=== PATIENT | male | born 1975 | race Caucasian/White ===

== ENCOUNTER 2021-09-08 15:36 | Inpatient (IN) | payer OTHER ==
[~2021-09-08] VITALS: Ht 162.6 cm; Wt 119.0 kg
[2021-09-08] MEDS ORDERED: papaverine 30 mg/ml 2ml inj. ONE (16:00)
--- NOTE | 2021-09-08 18:32 | NUR ---
Problems reprioritized. Patient report given, questions answered & plan of care reviewed with Priscilla SALGADO.
[2021-09-08 19:15] VITALS: BP 126/80
--- NOTE | 2021-09-08 19:30 | NUR ---
Received pt via stretcher and transferred to bed. pt is AAOX4 ,ambulatory, heparin drip placed on the pump and restarted at 1000 units/hr. Pt placed on tele box #11. Pt denied any discomfort. Call light , bedside table within reach. fall precaution in progress.
[2021-09-08] MEDS ORDERED: ASPI-1265 PO (21:04)
[2021-09-08] MEDS ORDERED: EPLE25TA4 PO (21:04)
[2021-09-08] MEDS ORDERED: LOSA25TA96 PO (21:04)
[2021-09-08] MEDS ORDERED: EZET10TA6 PO (21:04)
[2021-09-08] MEDS ORDERED: ATOR40TA PO (21:04)
[2021-09-08] MEDS ORDERED: CARV-50 PO (21:04)
[2021-09-08] MEDS ORDERED: MULT-1085 PO (21:04)
[2021-09-08 22:00] VITALS: BP 124/87
[2021-09-08 22:08] LABS: PARTIAL THROMBOPLASTIN TIME 38 SECONDS (22-32)
[2021-09-08] MEDS ORDERED: HYDROmorphone inj. 0.5 MG/0.5 ML DISP.SYRIN IV PRN (22:30)
[2021-09-08] MEDS ORDERED: HYDROcodone/acetaminophen 10/325mg tab PO PRN (22:30)
[2021-09-08] MEDS ORDERED: HYDROcodone/acetaminophen 5mg/325mg tablet PO PRN (22:30)
[2021-09-08] MEDS ORDERED: acetaminophen 650mg rectal suppository RC PRN (22:30)
[2021-09-08] MEDS ORDERED: normal saline 1000ml 1,000 ML IV SCH (22:30)
[2021-09-08] MEDS ORDERED: bisacodyl 10mg suppository rectal RC PRN (22:30)
[2021-09-08] MEDS ORDERED: diphenhydrAMINE 25mg capsule PO PRN (22:30)
[2021-09-08] MEDS ORDERED: diphenhydrAMINE 50 mg/ml inj IV PRN (22:30)
[2021-09-08] MEDS ORDERED: acetaminophen 325mg tablet PO PRN ×2 (22:30)
[2021-09-08] MEDS ORDERED: mag hydrox/Alum hydrox/simeth 30ml oral suspension PO PRN (22:30)
[2021-09-08] MEDS ORDERED: CefTRIAXone 500MG IM Kit w/LIDOcaine IM ONE (22:30)
[2021-09-08] MEDS ORDERED: ondansetron 4mg rapidly disintigrating tab PO PRN (22:30)
[2021-09-08] MEDS ORDERED: morphine 2 MG/ML inj. syringe IV PRN ×2 (22:30)
[2021-09-08] MEDS ORDERED: ondansetron/PF 4mg/2ml inj IV PRN (22:30)
[2021-09-08] MEDS ORDERED: magnesium hydroxide 30ml (MOM) UD suspension PO PRN (22:30)
[2021-09-08 23:00] LABS: MAGNESIUM 2.2 MG/DL (1.5-2.4)
[2021-09-08 23:06] LABS: HEMOGLOBIN A1C 5.8 % (4.5-6.2)
[2021-09-09 00:29] LABS: CREATINE KINASE 256 U/L (39-308); LIPASE 103 U/L (73-393)
[2021-09-09] MEDS ORDERED: CefTRIAXone 250MG IM Kit w/LIDOcaine IM ONE (00:45)
[2021-09-09] MEDS ORDERED: heparin 10,000 units/1 ML INJ IV PRN (00:50)
[2021-09-09 02:00] VITALS: BP 100/72
[2021-09-09] MEDS: heparin 25,000 UNIT/250ml bag 250 ML IV SCH (05:34)
--- NOTE | 2021-09-09 05:55 | NUR ---
Heparin drips at 1200 units , infusing well with no complaints. Pt had a good night sleep and reported no discomfort..
[2021-09-09 06:00] VITALS: BP 121/83
[2021-09-09 06:43] LABS: BASOPHILS % (AUTO) 0.6 % (0-1); EOSINOPHILS # (AUTO) 0.3 X10'3 (0-0.9); EOSINOPHILS % (AUTO) 3.8 % (0-6); HEMATOCRIT 42.8 % (42.0-52.0); LYMPHOCYTES # (AUTO) 1.7 X10'3 (1.1-4.8); LYMPHOCYTES % (AUTO) 20.4 % (21-51); MEAN CORPUSCULAR HEMOGLOBIN 31.5 PG (27.0-31.0); MEAN CORPUSCULAR VOLUME 89.9 FL (78-98); MEAN PLATELET VOLUME 9.3 FL (7.4-10.4); MONOCYTES # (AUTO) 0.7 X10'3 (0-0.9); MONOCYTES % (AUTO) 8.1 % (2-12); NEUTROPHILS # (AUTO) 5.6 X10'3 (1.8-7.7); NEUTROPHILS % (AUTO) 67.1 % (42-75); PLATELET COUNT 198 X10'3 (140-440); RED BLOOD COUNT 4.76 X10'6 (4.70-6.10); RED CELL DISTRIBUTION WIDTH 13.2 % (11.5-14.5); WHITE BLOOD COUNT 8.3 X10'3 (4.5-11.0)
[2021-09-09 06:51] LABS: D-DIMER < 0.19 MG/L FEU (0-0.50)
[2021-09-09 07:49] LABS: ALANINE AMINOTRANSFERASE 46 U/L (12-78); ALBUMIN 3.3 G/DL (3.4-5.0); ANION GAP 12 (8-16); ASPARTATE AMINO TRANSFERASE 55 U/L (10-37); BILIRUBIN,TOTAL 0.6 MG/DL (0.1-1.0); BLOOD UREA NITROGEN 17 MG/DL (7-18); BUN/CREATININE RATIO 14.3 (5.4-32.0); CALCIUM 8.6 MG/DL (8.5-10.1); CHLORIDE 105 MMOL/L (99-107); CHOL/HDL RATIO 5.3 (0.00-4.99); CHOLESTEROL 189 MG/DL (0-200); CREATININE 1.19 MG/DL (0.60-1.10); GLUCOSE 96 MG/DL (70-104); HDL CHOLESTEROL 36 MG/DL (35-60); POTASSIUM 3.9 MMOL/L (3.5-5.1); SODIUM 142 MMOL/L (135-145); TOTAL CARBON DIOXIDE 24.9 MMOL/L (24-32); TOTAL PROTEIN 6.7 G/DL (6.4-8.2); TRIGLYCERIDES 107 MG/DL (20-135); eGFR 65 ML/MIN
[2021-09-09] MEDS ORDERED: atorvastatin 20mg tablet PO SCH (08:00)
[2021-09-09] MEDS: nitroGLYCERIN 0.2mg/hour patch TD SCH (08:00)
[2021-09-09] MEDS ORDERED: losartan 25mg tablet PO SCH (08:00)
[2021-09-09] MEDS ORDERED: carVEDilol 12.5mg tablet PO SCH (08:00)
[2021-09-09 08:08] LABS: ALKALINE PHOSPHATASE 71 IU/L (46-116); LDL CHOLESTEROL 124 MG/DL (50-100)
[2021-09-09 08:46] LABS: PARTIAL THROMBOPLASTIN TIME 69 SECONDS (22-32)
[2021-09-09 09:00] LABS: ALANINE AMINOTRANSFERASE 50 U/L (12-78); ALBUMIN 3.2 G/DL (3.4-5.0); ALBUMIN/GLOBULIN RATIO 0.8 (1.1-1.5); ALKALINE PHOSPHATASE 70 IU/L (46-116); ANION GAP 6 (8-16); ASPARTATE AMINO TRANSFERASE 53 U/L (10-37); BILIRUBIN,TOTAL 0.7 MG/DL (0.1-1.0); BLOOD UREA NITROGEN 17 MG/DL (7-18); BUN/CREATININE RATIO 14.8 (5.4-32.0); CALCIUM 8.6 MG/DL (8.5-10.1); CHLORIDE 105 MMOL/L (99-107); CREATININE 1.15 MG/DL (0.60-1.10); GLUCOSE 103 MG/DL (70-104); POTASSIUM 4.1 MMOL/L (3.5-5.1); SODIUM 139 MMOL/L (135-145); TOTAL CARBON DIOXIDE 28.4 MMOL/L (24-32); eGFR 68 ML/MIN
--- NOTE | 2021-09-09 09:11 | NUR ---
PAGER ID: [phone] MESSAGE: [id number] [facility] IS [phone]. SUSHILA PETERSON
[2021-09-09] MEDS: aspirin 81mg tab.chew PO SCH (09:51)
[2021-09-09] MEDS: DOXYCYCLINE 100MG CAPSULE PO SCH ×2 (09:51→20:32)
[2021-09-09] MEDS: docusate sod 100mg capsule PO SCH ×2 (09:51→20:00)
[2021-09-09] MEDS: pantoprazole 40mg Tablet.DR PO SCH (09:52)
[2021-09-09] MEDS: furosemide 40mg/4ml inj IV SCH ×2 (09:53→20:34)
[2021-09-09] MEDS ORDERED: atorvastatin 20mg tablet PO ONE (10:20)
[2021-09-09 11:00] VITALS: BP 131/77
[2021-09-09 11:05] LABS: CLARITY,URINE CLEAR (Clear); COLOR,URINE YELLOW (Yellow); GLUCOSE, URINE NEGATIVE (Neg); KETONES,URINE NEGATIVE (Neg); LEUKOCYTE ESTERASE ,URINE TRACE (Neg); NITRITES, URINE NEGATIVE (Neg); OCCULT BLOOD,URINE NEGATIVE (Neg); PROTEIN,URINE NEGATIVE (Neg); UA COLLECTION TYPE CLN CATCH MIDSTREAM; UROBILINOGEN,URINE 0.2 E.U/dL (0.2-1.0)
[2021-09-09 11:14] LABS: URINE AMPHETAMINE SCREEN NEGATIVE (Neg); URINE BARBITUATE SCREEN NEGATIVE (Neg); URINE BENZODIAZEPINES SCREEN NEGATIVE (Neg); URINE CANNABINOID SCREEN NEGATIVE (Neg); URINE COCAINE SCREEN NEGATIVE (Neg); URINE METHADONE SCREEN NEGATIVE (Neg); URINE OPIATE SCREEN NEGATIVE (Neg); URINE PHENCYCLIDINE SCREEN NEGATIVE (Neg); WBC,URINE 20-30 /HPF (0-4)
[2021-09-09 11:15] LABS: BACTERIA,URINE FEW /HPF (Neg); MUCUS STRANDS FEW /LPF (Neg); RBC,URINE 0-2 /HPF (0-2); SQUAMOUS EPITHELIAL CELL,UR FEW /LPF (FEW)
--- NOTE | 2021-09-09 11:18 | NUR ---
IV spread sheet not changed to reflect actual Heparin drip rate during the night lab/rate adjustments. The rate was 1200 units/hr at AM shift change, after PTT results received rate was decreased to 1100 per protocol. In the IV spread sheet it reflects I changed the rate from 1000 units/hr to 1100 units/hr. It looks like an increase per electronic record, but it was a decrease in actuality.
--- NOTE | 2021-09-09 11:52 | NUR ---
DM consult: Pt with A1c 5.8% with no PMH DM in EMR, DM education not indicated at this time. Will continue to follow. Addendum: 09/09/21 at [address] Amended: Links added.
--- NOTE | 2021-09-09 11:56 | NUR ---
page critical lab PAGER ID: [phone] MESSAGE: room 3024A Aleksander Granda critical lab High sensitivity troponin [id number]
[2021-09-09] MEDS ORDERED: nitroGLYCERIN-Tridil 50MG/D5W 250 ML IV ONE (13:55)
[2021-09-09] MEDS ORDERED: midazolam 1 mg/ML 2ml injection ONE (13:56)
[2021-09-09] MEDS ORDERED: heparin 1,000unit/ml 10ml vial 10 ML ONE (13:56)
[2021-09-09] MEDS ORDERED: iohexol 350MG/ML 100ml bottle IV ONE (13:56)
[2021-09-09] MEDS ORDERED: verapamil 2.5 mg/ml inj IV ONE (13:56)
[2021-09-09] MEDS ORDERED: fentaNYL/PF 50MCG/1 ML 2ML syringe ONE (13:56)
[2021-09-09] MEDS ORDERED: iohexol 350 MG/ML 50ML vial IV ONE (13:56)
[2021-09-09] MEDS ORDERED: LIDOcaine 1% 30ml preserv. free vial ONE (13:56)
[2021-09-09] MEDS ORDERED: nitroGLYCERIN 0.4mg SUBLingual tab SL ONE ×2 (14:38→16:26)
[2021-09-09] MEDS ORDERED: iohexol 350 MG/1 ML 200ml bottle ONE (15:05)
[2021-09-09 16:00] VITALS: BP 142/87
[2021-09-09 16:06] LABS: ISTAT HGB ART 13.9 g/dl (14.0-18.0); ISTAT Hct ART 41 %PCV (42-52); ISTAT O2 SATURATION ARTERIAL 96 % (95-98); ISTAT SOURCE ART
[2021-09-09] MEDS: normal saline 1000ml 1,000 ML IV SCH (16:25)
[2021-09-09] MEDS ORDERED: magnesium 2GM in 50ml NS 50 ML IV PRN (17:10)
[2021-09-09] MEDS ORDERED: magnesium 4gm in 100ml NS 100 ML IV PRN (17:10)
[2021-09-09] MEDS ORDERED: potassium Cl 20mEq/100mL bag 100 ML IV PRN (17:10)
[2021-09-09] MEDS ORDERED: MESSAGE TO NURSING PO ONE ×5 (17:10→21:00)
[2021-09-09] MEDS ORDERED: potassium Cl 40MEQ/250ML bag 250 ML IV PRN (17:10)
[2021-09-09] MEDS ORDERED: potassium CL 10mEq/100ml bag 100 ML IV PRN (17:10)
[2021-09-09] MEDS ORDERED: potassium Cl 40MEQ/1/2NS 520ml 520 ML IV PRN (17:10)
[2021-09-09 18:00] VITALS: BP 149/92
--- NOTE | 2021-09-09 18:43 | NUR ---
Patient in room PCU 3024. I have received report from NAOMI Shah and had the opportunity to ask questions and assume patient care.
--- NOTE | 2021-09-09 18:44 | NUR ---
Patient in room PCU 3024. I have received report from Alyssa SALGADO and had the opportunity to ask questions and assume patient care.
--- NOTE | 2021-09-09 19:02 | NUR ---
Problems reprioritized. Patient report given, questions answered & plan of care reviewed with Sayra SALGADO.
[2021-09-09] MEDS: lactobacillus rhamnosus 10,000 MMU CELLS/CAPSULE PO SCH (20:34)
[2021-09-09] MEDS ORDERED: insulin glargine (Lantus) pen - multi-dose SQ PRN (21:00)
[2021-09-09] MEDS ORDERED: dextrose 50%-water 50ml dispensing syringe IV PRN (21:00)
[2021-09-09 21:03] LABS: ABG BASE EXCESS -0.7 mmol/L (-2.0-2.0); ABG HCO3 23.2 mmol/L (22.0-26.0); ABG OXYGEN SATURATION 95.7 % (94-97); ABG PCO2 (T) 36.5 mmHg (35.0-48.0); ABG PO2 (T) 79.8 mmHg (75.0-100.0); ALLEN'S TEST Modified; FCOHb 0.3 % (0.0-3.9); FMetHb 0.3 % (0.0-1.5); FO2Hb 95.1 % (94-97); TOTAL HEMOGLOBIN 16.2 G/dl (14.0-18.0)
[2021-09-09 22:00] VITALS: BP 124/89
[2021-09-09] MEDS ORDERED: ringers solution, lacted 1,000 ML IV ONE (23:35)
[2021-09-10] VITALS (18 sets, daily range): BP systolic 98–121; BP diastolic 54–78
[2021-09-10] MEDS ORDERED: epiNEPHrine 1 mg/ml inj ONE ×2 (02:22→11:03)
[2021-09-10] MEDS ORDERED: ceFAZolin 1000mg inj ONE (02:22)
[2021-09-10] MEDS: normal saline 1000ml 1,000 ML IV SCH ×3 (02:25→22:25)
[2021-09-10 04:03] LABS: BASOPHILS # (AUTO) 0.1 X10'3 (0-0.2); BASOPHILS % (AUTO) 0.7 % (0-1); EOSINOPHILS # (AUTO) 0.3 X10'3 (0-0.9); EOSINOPHILS % (AUTO) 3.6 % (0-6); HEMATOCRIT 43.5 % (42.0-52.0); HEMOGLOBIN 15.1 g/dl (14.0-17.9); LYMPHOCYTES # (AUTO) 1.3 X10'3 (1.1-4.8); MEAN CORPUSCULAR HEMOGLOBIN 31.3 PG (27.0-31.0); MEAN CORPUSCULAR HGB CONC 34.8 g/dL (33.0-36.5); MEAN CORPUSCULAR VOLUME 89.9 FL (78-98); MEAN PLATELET VOLUME 9.8 FL (7.4-10.4); MONOCYTES # (AUTO) 0.7 X10'3 (0-0.9); MONOCYTES % (AUTO) 7.8 % (2-12); NEUTROPHILS # (AUTO) 6.6 X10'3 (1.8-7.7); NEUTROPHILS % (AUTO) 72.9 % (42-75); PLATELET COUNT 222 X10'3 (140-440); RED BLOOD COUNT 4.84 X10'6 (4.70-6.10); RED CELL DISTRIBUTION WIDTH 13.3 % (11.5-14.5)
[2021-09-10 04:22] LABS: ALANINE AMINOTRANSFERASE 57 U/L (12-78); ALBUMIN 3.4 G/DL (3.4-5.0); ALBUMIN/GLOBULIN RATIO 0.8 (1.1-1.5); ALKALINE PHOSPHATASE 72 IU/L (46-116); ANION GAP 12 (8-16); ASPARTATE AMINO TRANSFERASE 37 U/L (10-37); BILIRUBIN,TOTAL 0.6 MG/DL (0.1-1.0); BLOOD UREA NITROGEN 19 MG/DL (7-18); BUN/CREATININE RATIO 16.4 (5.4-32.0); CALCIUM 8.2 MG/DL (8.5-10.1); CHLORIDE 103 MMOL/L (99-107); CHOL/HDL RATIO 5.1 (0.00-4.99); CHOLESTEROL 205 MG/DL (0-200); CREATININE 1.16 MG/DL (0.60-1.10); GLUCOSE 112 MG/DL (70-104); HDL CHOLESTEROL 40 MG/DL (35-60); LDL CHOLESTEROL 141 MG/DL (50-100); POTASSIUM 3.6 MMOL/L (3.5-5.1); SODIUM 141 MMOL/L (135-145); TOTAL CARBON DIOXIDE 25.9 MMOL/L (24-32); TOTAL PROTEIN 7.5 G/DL (6.4-8.2); TRIGLYCERIDES 155 MG/DL (20-135); eGFR 67 ML/MIN
[2021-09-10] MEDS ORDERED: mupirocin 2% nasal ointment 1gm UD NS SCH (05:00)
[2021-09-10] MEDS ORDERED: Insulin Reg/NS 100units/100mL 100 ML IV SCH ×2 (05:00→11:40)
[2021-09-10] MEDS ORDERED: MALTODEXTRIN/FRUCTOSE 0.68 KCAL/ML LIQUID 296ML BOTTLE PO ONE (05:00)
[2021-09-10] MEDS: heparin 25,000 UNIT/250ml bag 250 ML IV SCH (05:06)
[2021-09-10] MEDS ORDERED: gabapentin 400mg capsule PO ONE (05:30)
[2021-09-10] MEDS ORDERED: cefazolin/dext.iso 2gm/50ml 50 ML IV ONE (05:30)
[2021-09-10] MEDS ORDERED: ceFAZolin inj. 3,000 MG in normal saline 100ml IV soln 100 ML IV ONE (05:30)
[2021-09-10] MEDS ORDERED: vancomycin/NS 1 GM ADD-VANTAGE 250 ML X 1 DOSE IV ONE (05:30)
[2021-09-10] MEDS ORDERED: famotidine 20mg tablet PO ONE (06:00)
[2021-09-10] MEDS ORDERED: LORazepam 2 mg/ml vial IV ONE (06:00)
--- NOTE | 2021-09-10 06:31 | NUR ---
Problems reprioritized. Patient report given, questions answered & plan of care reviewed with NAOMI Castañeda and NAOMI Bruce.
--- NOTE | 2021-09-10 06:46 | NUR ---
Patient in room PCU 3024. I have received report from Sayra RN and student, and had the opportunity to ask questions and assume patient care.
[2021-09-10] MEDS ORDERED: SUFENTANIL CITRATE 50 MCG/ML 2ml ampule IV ONE (07:10)
[2021-09-10] MEDS ORDERED: midazolam 1 mg/ML 2ml injection ONE (07:13)
[2021-09-10] MEDS ORDERED: rocuronium 10mg/ml inj IV ONE ×3 (07:14→08:25)
[2021-09-10] MEDS ORDERED: LIDOcaine 2% (20mg/ml) 5ml vial ONE (07:14)
--- NOTE | 2021-09-10 07:31 | NUR ---
Student documentation: I have reviewed and agree with all interventions, assessments performed and documented by Telma Rosas. Student Medication Administration: For this medication-pass time frame, all medication were reviewed, dispensed, administered and documented per hospital policy by Telma Rosas.
[2021-09-10] MEDS: furosemide 40mg/4ml inj IV SCH (07:41)
[2021-09-10] MEDS: losartan 25mg tablet PO SCH (07:44)
[2021-09-10] MEDS: metoprolol tartrate 12.5mg (1/2 tablet) PO SCH ×2 (07:44→20:54)
[2021-09-10] MEDS: atorvastatin 20mg tablet PO SCH (07:45)
[2021-09-10] MEDS: pantoprazole 40mg Tablet.DR PO SCH (07:47)
[2021-09-10] MEDS: lactobacillus rhamnosus 10,000 MMU CELLS/CAPSULE PO SCH ×2 (07:47→20:55)
--- NOTE | 2021-09-10 07:59 | NUR ---
Patient taken to OR for CABG, belongings sent with .
[2021-09-10] MEDS: aspirin 81mg tab.chew PO SCH (08:00)
[2021-09-10] MEDS: sod chloride 0.9% 10ml flush syringe IV SCH ×2 (08:00→20:55)
[2021-09-10] MEDS: docusate sod 100mg capsule PO SCH ×2 (08:00→20:55)
[2021-09-10] MEDS: nitroGLYCERIN 0.2mg/hour patch TD SCH (08:00)
[2021-09-10] MEDS ORDERED: DOPamine/D5W 400mg/250ml bag IV ONE (08:25)
[2021-09-10] MEDS ORDERED: isoflurane 100ml inhalation liquid IH ONE (08:25)
[2021-09-10] MEDS ORDERED: acetaminophen 1000 MG/100ml vial IV ONE (08:25)
[2021-09-10] MEDS ORDERED: nitroGLYCERIN in D5W 50mg/250ml (Tridil) infusion IV ONE (08:25)
[2021-09-10] MEDS ORDERED: aminocaproic acid 250 MG/1 ML inj. ONE ×2 (08:25→10:00)
[2021-09-10] MEDS ORDERED: INSULIN R 100 UNIT in NS 100ML (1 UNIT/1 ML) BAG IV ONE (08:25)
[2021-09-10] MEDS ORDERED: protamine sulf. 10mg/ml inj. IV ONE (08:25)
[2021-09-10] MEDS ORDERED: glycopyrrolate 0.2mg/ml inj ONE (08:25)
[2021-09-10] MEDS ORDERED: albuterol 60 PUFF/8GM Inhaler IH ONE (08:25)
[2021-09-10] MEDS: DOXYCYCLINE 100MG CAPSULE PO SCH (08:30)
[2021-09-10] MEDS ORDERED: heparin 10,000 units/1 ML INJ IR ONE (09:00)
[2021-09-10] MEDS ORDERED: papaverine 30 mg/ml 2ml inj. IA ONE (09:00)
[2021-09-10 09:08] LABS: ABG BASE EXCESS VENOUS 0.7 mmol/L (-2.0 - 2.0); ABG HCO3 VENOUS 23.6 mmol/L (21.0-28.0); ABG PCO2 VENOUS 33.2 mmHg (41.0-54.0); ABG PO2 VENOUS 354.9 mmHg (25.0-35.0); CL (ABG) 102 mmol/L (98-110); FCOHb VENOUS 0.7 %; FHHb VENOUS 0.2 %; FMetHb VENOUS 0.2 % (0.0 - 0.5); FO2Hb VENOUS 98.9 %; GLUCOSE (ABG) 88 mg/dl (70-105); IONIZED CA (ABG) 1.11 mmol/L (1.10-1.43); K (ABG) 3.7 mmol/L (3.5-5.0); TOTAL HEMOGLOBIN 14.7 G/dl (14.0-18.0)
[2021-09-10 09:52] LABS: ABG BASE EXCESS VENOUS 1.6 mmol/L (-2.0 - 2.0); ABG HCO3 VENOUS 25.7 mmol/L (21.0-28.0); ABG PCO2 VENOUS 38.5 mmHg (41.0-54.0); ABG PO2 VENOUS 52.5 mmHg (25.0-35.0); CL (ABG) 97 mmol/L (98-110); FCOHb VENOUS 0.4 %; FHHb VENOUS 12.8 %; FMetHb VENOUS 0.3 % (0.0 - 0.5); FO2Hb VENOUS 86.5 %; GLUCOSE (ABG) 88 mg/dl (70-105); IONIZED CA (ABG) 0.92 mmol/L (1.10-1.43); K (ABG) 3.3 mmol/L (3.5-5.0)
[2021-09-10 09:56] LABS: ABG BASE EXCESS 2.6 mmol/L (-2.0-2.0); ABG HCO3 27.1 mmol/L (22.0-26.0); ABG OXYGEN SATURATION 99.4 % (94-97); ABG PCO2 41.6 mmHg (35.0-48.0); ABG PO2 404.4 mmHg (75.0-100.0); CL (ABG) 98 mmol/L (98-110); FCOHb 0.3 % (0.0-3.9); FMetHb 0.3 % (0.0-1.5); FO2Hb 98.8 % (94-97); GLUCOSE (ABG) 89 mg/dl (70-105); IONIZED CA (ABG) 0.93 mmol/L (1.10-1.43); K (ABG) 3.5 mmol/L (3.5-5.0); TOTAL HEMOGLOBIN 10.8 G/dl (14.0-18.0)
[2021-09-10] MEDS ORDERED: heparin 10,000 units/1 ML INJ ONE (10:00)
[2021-09-10] MEDS ORDERED: methylPREDNISolone sod. succ. 500mg inj ONE (10:00)
[2021-09-10] MEDS ORDERED: albumin (human) 25% 100 ML IV solution IV ONE (10:00)
[2021-09-10] MEDS ORDERED: calcium chloride 100 MG/1 ML inj IV ONE (10:00)
[2021-09-10] MEDS ORDERED: MESSAGE TO NURSING PO ONE (10:00)
[2021-09-10] MEDS ORDERED: sodium bicarbonate (8.4%) 1 mEq/ml syringe ONE (10:00)
[2021-09-10] MEDS ORDERED: phenylephrine 10mg/ml inj. ONE ×2 (10:00→11:03)
[2021-09-10] MEDS ORDERED: ipratropium/albuterol 3ml nebule IH PRN (10:10)
[2021-09-10 10:18] LABS: ABG BASE EXCESS 1.9 mmol/L (-2.0-2.0); ABG HCO3 27.2 mmol/L (22.0-26.0); ABG PCO2 45.4 mmHg (35.0-48.0); ABG PO2 170.1 mmHg (75.0-100.0); CL (ABG) 100 mmol/L (98-110); FCOHb 0.3 % (0.0-3.9); FMetHb 0.3 % (0.0-1.5); FO2Hb 98.4 % (94-97); GLUCOSE (ABG) 93 mg/dl (70-105); IONIZED CA (ABG) 1.02 mmol/L (1.10-1.43); K (ABG) 4.1 mmol/L (3.5-5.0); TOTAL HEMOGLOBIN 11.5 G/dl (14.0-18.0)
[2021-09-10 10:43] LABS: ABG BASE EXCESS 3.8 mmol/L (-2.0-2.0); ABG OXYGEN SATURATION 99.3 % (94-97); ABG PCO2 46.4 mmHg (35.0-48.0); ABG PO2 265.9 mmHg (75.0-100.0); CL (ABG) 99 mmol/L (98-110); FCOHb 0.3 % (0.0-3.9); FMetHb 0.3 % (0.0-1.5); FO2Hb 98.7 % (94-97); GLUCOSE (ABG) 99 mg/dl (70-105); IONIZED CA (ABG) 0.96 mmol/L (1.10-1.43); K (ABG) 3.8 mmol/L (3.5-5.0); TOTAL HEMOGLOBIN 11.2 G/dl (14.0-18.0)
[2021-09-10] MEDS ORDERED: etomidate 2mg/ml inj. ONE (11:03)
[2021-09-10] MEDS ORDERED: acetaminophen 1,000mg/100ml IV 100 ML IV ONE (11:03)
[2021-09-10 11:39] LABS: ABG BASE EXCESS VENOUS -0.2 mmol/L (-2.0 - 2.0); ABG HCO3 VENOUS 25.8 mmol/L (21.0-28.0); ABG PCO2 VENOUS 47.5 mmHg (41.0-54.0); ABG PO2 VENOUS 38.5 mmHg (25.0-35.0); CL (ABG) 101 mmol/L (98-110); FCOHb VENOUS 1.1 %; FHHb VENOUS 30.2 %; FMetHb VENOUS 0.3 % (0.0 - 0.5); FO2Hb VENOUS 68.4 %; GLUCOSE (ABG) 123 mg/dl (70-105); IONIZED CA (ABG) 1.13 mmol/L (1.10-1.43); K (ABG) 4.1 mmol/L (3.5-5.0)
[2021-09-10] MEDS ORDERED: nitroGLYCERIN-Tridil 50MG/D5W 250 ML IV SCH (11:40)
[2021-09-10] MEDS ORDERED: mineral oil 133ml enema RC PRN (11:40)
[2021-09-10] MEDS ORDERED: morphine 4 MG/ML inj SYRINge IV PRN ×2 (11:40)
[2021-09-10] MEDS ORDERED: Neutra Phos packet PO PRN (11:40)
[2021-09-10] MEDS ORDERED: magnesium hydroxide 30ml (MOM) UD suspension PO PRN (11:40)
[2021-09-10] MEDS ORDERED: sodium phosphate inj. 30 MMOL in dextrose 5%-water 250 ML IV PRN (11:40)
[2021-09-10] MEDS ORDERED: acetaminophen 325mg tablet PO PRN ×2 (11:40)
[2021-09-10] MEDS ORDERED: sodium phosphate inj. 15 MMOL in dextrose 5%-water 250 ML IV PRN (11:40)
[2021-09-10] MEDS ORDERED: metoclopramide 5 mg/ml inj IV PRN (11:40)
[2021-09-10] MEDS ORDERED: pantoprazole 40 MG vial IV ONE (11:40)
[2021-09-10] MEDS ORDERED: ondansetron/PF 4mg/2ml inj IV PRN (11:40)
[2021-09-10] MEDS ORDERED: magnesium 2GM in 50ml NS 50 ML IV PRN (11:40)
[2021-09-10] MEDS ORDERED: magnesium citrate 296ml oral solution PO PRN (11:40)
[2021-09-10] MEDS ORDERED: HYDROcodone/acetaminophen 10/325mg tab PO PRN ×2 (11:40)
[2021-09-10] MEDS ORDERED: insulin glargine (Lantus) pen - multi-dose SQ PRN (11:40)
[2021-09-10] MEDS ORDERED: potassium Cl 40MEQ/1/2NS 520ml 520 ML IV PRN (11:40)
[2021-09-10] MEDS ORDERED: potassium Cl 20mEq/100mL bag 100 ML IV PRN (11:40)
[2021-09-10] MEDS ORDERED: niCARDipine-NS 40mg/200ml IVPB 200 ML IV PRN (11:40)
[2021-09-10] MEDS ORDERED: potassium CL 10mEq/100ml bag 100 ML IV PRN (11:40)
[2021-09-10] MEDS ORDERED: magnesium 4gm in 100ml NS 100 ML IV PRN (11:40)
[2021-09-10] MEDS ORDERED: potassium Cl 20 mEq SR tablet PO PRN (11:40)
[2021-09-10] MEDS ORDERED: dextrose 50%-water 50ml dispensing syringe IV PRN (11:40)
[2021-09-10] MEDS ORDERED: sodium chloride 0.45% 1,000 ML IV SCH (11:40)
[2021-09-10] MEDS ORDERED: potassium Cl 40MEQ/250ML bag 250 ML IV PRN (11:40)
[2021-09-10] MEDS ORDERED: NOREPINEPHRINE BITARTRATE/D5W 250 ML IV PRN (11:40)
[2021-09-10] MEDS ORDERED: bisacodyl 10mg suppository rectal RC PRN (11:40)
[2021-09-10 12:14] LABS: ABG BASE EXCESS 3.3 mmol/L (-2.0-2.0); ABG HCO3 27.6 mmol/L (22.0-26.0); ABG OXYGEN SATURATION 96.8 % (94-97); ABG PCO2 (T) 40.1 mmHg (35.0-48.0); ABG PO2 (T) 90.7 mmHg (75.0-100.0); ALLEN'S TEST POSITIVE; FCOHb 0.4 % (0.0-3.9); FLOW 3 L/min; FMetHb 0.3 % (0.0-1.5); FO2Hb 96.1 % (94-97); PATIENT TEMPERATURE 36.6; PEEP 5 cm H2O; RESPIRATORY RATE 12 b/min; TIDAL VOLUME 700 mL; TOTAL HEMOGLOBIN 15.7 G/dl (14.0-18.0)
--- NOTE | 2021-09-10 12:16 | NUR ---
CABG consult: Pt s/p CABG today, would benefit from nutrition therapy education once more appropriate. Addendum: 09/10/21 at [address] Amended: Links added.
[2021-09-10 12:27] LABS: BASOPHILS % (AUTO) 0.4 % (0-1); EOSINOPHILS # (AUTO) 0.1 X10'3 (0-0.9); HEMOGLOBIN 14.7 g/dl (14.0-17.9); LYMPHOCYTES # (AUTO) 0.6 X10'3 (1.1-4.8); LYMPHOCYTES % (AUTO) 4.3 % (21-51); MEAN CORPUSCULAR HEMOGLOBIN 30.9 PG (27.0-31.0); MEAN CORPUSCULAR HGB CONC 34.2 g/dL (33.0-36.5); MEAN CORPUSCULAR VOLUME 90.2 FL (78-98); MEAN PLATELET VOLUME 9.3 FL (7.4-10.4); MONOCYTES # (AUTO) 0.6 X10'3 (0-0.9); MONOCYTES % (AUTO) 4.3 % (2-12); NEUTROPHILS # (AUTO) 12.1 X10'3 (1.8-7.7); PLATELET COUNT 146 X10'3 (140-440); RED BLOOD COUNT 4.77 X10'6 (4.70-6.10); RED CELL DISTRIBUTION WIDTH 13.1 % (11.5-14.5); WHITE BLOOD COUNT 13.4 X10'3 (4.5-11.0)
[2021-09-10 12:30] LABS: PARTIAL THROMBOPLASTIN TIME 28 SECONDS (22-32)
[2021-09-10 12:31] LABS: ALANINE AMINOTRANSFERASE 37 U/L (12-78); ALBUMIN 2.9 G/DL (3.4-5.0); ALBUMIN/GLOBULIN RATIO 1.1 (1.1-1.5); ALKALINE PHOSPHATASE 54 IU/L (46-116); ANION GAP 8 (8-16); BLOOD UREA NITROGEN 17 MG/DL (7-18); BUN/CREATININE RATIO 13.2 (5.4-32.0); CALCIUM 7.8 MG/DL (8.5-10.1); CHLORIDE 106 MMOL/L (99-107); CREATININE 1.29 MG/DL (0.60-1.10); GLUCOSE 135 MG/DL (70-104); MAGNESIUM 1.9 MG/DL (1.5-2.4); SODIUM 142 MMOL/L (135-145); TOTAL CARBON DIOXIDE 27.8 MMOL/L (24-32); TOTAL PROTEIN 5.6 G/DL (6.4-8.2); eGFR 59 ML/MIN
[2021-09-10 12:36] LABS: ASPARTATE AMINO TRANSFERASE 45 U/L (10-37); PHOSPHORUS 2.6 MG/DL (2.3-4.5)
[2021-09-10] MEDS: gabapentin 300mg capsule PO SCH ×2 (12:44→20:55)
[2021-09-10] MEDS ORDERED: NORepinephrine 8mg/ 250ml NS 250 ML IV PRN (12:57)
[2021-09-10] MEDS: albumin (Human) 5% 250ml 250 ML IV PRN ×2 (13:37→15:05)
[2021-09-10] MEDS: ceFAZolin/D5W- 1GM premix 50 ML IV SCH (16:18)
[2021-09-10] MEDS: albuterol 2.5 MG/3 ML nebule NEB PRN (16:33)
[2021-09-10 17:44] LABS: BASOPHILS % (AUTO) 0.1 % (0-1); EOSINOPHILS % (AUTO) 0.1 % (0-6); HEMATOCRIT 39.3 % (42.0-52.0); HEMOGLOBIN 13.5 g/dl (14.0-17.9); LYMPHOCYTES # (AUTO) 0.6 X10'3 (1.1-4.8); LYMPHOCYTES % (AUTO) 3.2 % (21-51); MEAN CORPUSCULAR HGB CONC 34.2 g/dL (33.0-36.5); MEAN CORPUSCULAR VOLUME 90.5 FL (78-98); MEAN PLATELET VOLUME 10.1 FL (7.4-10.4); MONOCYTES # (AUTO) 0.5 X10'3 (0-0.9); MONOCYTES % (AUTO) 2.6 % (2-12); PLATELET COUNT 209 X10'3 (140-440); RED BLOOD COUNT 4.35 X10'6 (4.70-6.10); RED CELL DISTRIBUTION WIDTH 13.5 % (11.5-14.5); WHITE BLOOD COUNT 20.2 X10'3 (4.5-11.0)
[2021-09-10 17:51] LABS: ALBUMIN 3.6 G/DL (3.4-5.0); ANION GAP 11 (8-16); BLOOD UREA NITROGEN 18 MG/DL (7-18); BUN/CREATININE RATIO 13.5 (5.4-32.0); CALCIUM 7.9 MG/DL (8.5-10.1); CHLORIDE 108 MMOL/L (99-107); CREATININE 1.33 MG/DL (0.60-1.10); GLUCOSE 157 MG/DL (70-104); MAGNESIUM 3.2 MG/DL (1.5-2.4); PHOSPHORUS 3.2 MG/DL (2.3-4.5); POTASSIUM 4.2 MMOL/L (3.5-5.1); SODIUM 144 MMOL/L (135-145); TOTAL CARBON DIOXIDE 25.3 MMOL/L (24-32); eGFR 57 ML/MIN
[2021-09-10] MEDS: ipratropium/albuterol 3ml nebule NEB SCH ×2 (20:23→23:00)
[2021-09-10] MEDS: vancomycin/NS 1 GM ADD-VANTAGE 250 ML IV SCH (20:54)
[2021-09-10] MEDS: sennosides/docusate sodium tablet PO SCH (20:55)
[2021-09-10] MEDS: mupirocin 2% nasal ointment 1gm UD NS SCH (20:55)
[2021-09-10] MEDS ORDERED: atorvastatin 10mg tablet PO SCH (21:00)
[2021-09-10 23:51] LABS: MAGNESIUM 2.7 MG/DL (1.5-2.4)
[2021-09-11] VITALS (21 sets, daily range): BP systolic 90–135; BP diastolic 54–82
[2021-09-11 01:22] LABS: PARTIAL THROMBOPLASTIN TIME 27 SECONDS (22-32)
[2021-09-11 01:23] LABS: BASOPHILS # (AUTO) 0.2 X10'3 (0-0.2); BASOPHILS % (AUTO) 1.1 % (0-1); EOSINOPHILS % (AUTO) 0 % (0-6); HEMOGLOBIN 13.2 g/dl (14.0-17.9); LYMPHOCYTES # (AUTO) 0.6 X10'3 (1.1-4.8); LYMPHOCYTES % (AUTO) 3.2 % (21-51); MEAN CORPUSCULAR HEMOGLOBIN 31.1 PG (27.0-31.0); MEAN CORPUSCULAR HGB CONC 34.8 g/dL (33.0-36.5); MEAN CORPUSCULAR VOLUME 89.5 FL (78-98); MEAN PLATELET VOLUME 9.7 FL (7.4-10.4); MONOCYTES # (AUTO) 0.7 X10'3 (0-0.9); MONOCYTES % (AUTO) 3.7 % (2-12); NEUTROPHILS # (AUTO) 17.1 X10'3 (1.8-7.7); PLATELET COUNT 218 X10'3 (140-440); RED BLOOD COUNT 4.25 X10'6 (4.70-6.10); WHITE BLOOD COUNT 18.6 X10'3 (4.5-11.0)
[2021-09-11 01:25] LABS: ALANINE AMINOTRANSFERASE 42 U/L (12-78); ALBUMIN 3.5 G/DL (3.4-5.0); ALBUMIN/GLOBULIN RATIO 1.3 (1.1-1.5); ALKALINE PHOSPHATASE 47 IU/L (46-116); ANION GAP 10 (8-16); ASPARTATE AMINO TRANSFERASE 56 U/L (10-37); BILIRUBIN,TOTAL 0.6 MG/DL (0.1-1.0); BLOOD UREA NITROGEN 19 MG/DL (7-18); BUN/CREATININE RATIO 12.8 (5.4-32.0); CALCIUM 7.9 MG/DL (8.5-10.1); CHLORIDE 109 MMOL/L (99-107); CREATININE 1.49 MG/DL (0.60-1.10); GLUCOSE 108 MG/DL (70-104); MAGNESIUM 2.8 MG/DL (1.5-2.4); PHOSPHORUS 2.5 MG/DL (2.3-4.5); SODIUM 146 MMOL/L (135-145); TOTAL CARBON DIOXIDE 27.5 MMOL/L (24-32); TOTAL PROTEIN 6.2 G/DL (6.4-8.2); eGFR 50 ML/MIN
[2021-09-11] MEDS: ipratropium/albuterol 3ml nebule NEB SCH ×6 (03:54→20:14)
[2021-09-11 06:46] LABS: ISTAT Hct MIX 40 %PCV (42-52); ISTAT O2 SATURATION MIX VENOUS 66 % (60-80); ISTAT SOURCE VEN
[2021-09-11] MEDS: HYDROcodone/acetaminophen 10/325mg tab PO PRN ×4 (06:49→21:32)
[2021-09-11] MEDS: atorvastatin 20mg tablet PO SCH (07:56)
[2021-09-11] MEDS: lactobacillus rhamnosus 10,000 MMU CELLS/CAPSULE PO SCH ×2 (07:57→20:16)
[2021-09-11] MEDS: metoprolol tartrate 12.5mg (1/2 tablet) PO SCH ×2 (07:57→20:16)
[2021-09-11] MEDS: aspirin 325mg tablet, delayed-release (Ecotrin) PO SCH (07:57)
[2021-09-11] MEDS: gabapentin 300mg capsule PO SCH ×3 (07:58→20:16)
[2021-09-11] MEDS: docusate sod 100mg capsule PO SCH ×2 (07:58→20:15)
[2021-09-11] MEDS: sennosides/docusate sodium tablet PO SCH ×2 (07:58→20:15)
[2021-09-11] MEDS: nitroGLYCERIN 0.2mg/hour patch TD SCH (07:58)
[2021-09-11] MEDS: mupirocin 2% nasal ointment 1gm UD NS SCH ×2 (07:59→20:16)
[2021-09-11] MEDS: vancomycin/NS 1 GM ADD-VANTAGE 250 ML IV SCH ×2 (07:59→20:17)
[2021-09-11] MEDS: losartan 25mg tablet PO SCH (08:00)
[2021-09-11] MEDS: sod chloride 0.9% 10ml flush syringe IV SCH ×2 (08:00→20:00)
[2021-09-11] MEDS ORDERED: metoprolol tartrate 12.5mg (1/2 tablet) PO SCH (08:00)
[2021-09-11] MEDS: ceFAZolin/D5W- 1GM premix 50 ML IV SCH ×3 (08:00→16:13)
[2021-09-11] MEDS: normal saline 1000ml 1,000 ML IV SCH ×2 (08:25→16:13)
[2021-09-11 10:08] LABS: ACTIVATED CLOTTING TIME 514 SEC (101-148)
[2021-09-11 10:08] LABS: ACT @ 1.70 U 292 SEC (193-297); ACT @ 2.84 U 402 SEC (260-420); BASELINE ACT 157 SEC (101-148)
[2021-09-11 10:08] LABS: ACTIVATED CLOTTING TIME 554 SEC (101-148)
[2021-09-11 10:08] LABS: ACTIVATED CLOTTING TIME 805 SEC (101-148)
[2021-09-11 10:08] LABS: ACTIVATED CLOTTING TIME 120 SEC (101-148)
[2021-09-11] MEDS ORDERED: dextrose 50%-water 50ml dispensing syringe IV PRN ×4 (10:55)
[2021-09-11] MEDS ORDERED: glucagon, human recombinant 1mg kit SUBCUT PRN ×2 (10:55)
[2021-09-11] MEDS ORDERED: insulin Lispro (HumaLOG) vial - multi-dose SQ SCH (10:55)
[2021-09-11] MEDS ORDERED: MESSAGE TO PHARMACY PO ONE (10:55)
[2021-09-11] MEDS ORDERED: dextrose ORAL solution 15 GM/59 ML bottle PO PRN ×4 (10:55)
[2021-09-11] MEDS: insulin glargine (Lantus) pen - multi-dose SQ SCH ×2 (11:42→21:27)
--- NOTE | 2021-09-11 11:58 | NUR ---
CABG consult: Pt s/p CABG 09/10, Provided pt and family member w/ written and verbal CABG nutrition therapy w/ RD contact info. Pt receptive of info Addendum: 09/11/21 at [address] Amended: Links added.
[2021-09-11] MEDS: insulin Lispro (HumaLOG) vial - multi-dose SQ SCH ×3 (13:16→21:26)
[2021-09-11 13:23] LABS: BASOPHILS % (AUTO) 0.2 % (0-1); EOSINOPHILS % (AUTO) 0 % (0-6); HEMATOCRIT 37.6 % (42.0-52.0); HEMOGLOBIN 12.6 g/dl (14.0-17.9); LYMPHOCYTES # (AUTO) 0.6 X10'3 (1.1-4.8); LYMPHOCYTES % (AUTO) 3.2 % (21-51); MEAN CORPUSCULAR HEMOGLOBIN 30.7 PG (27.0-31.0); MEAN CORPUSCULAR HGB CONC 33.4 g/dL (33.0-36.5); MEAN CORPUSCULAR VOLUME 91.7 FL (78-98); MEAN PLATELET VOLUME 9.8 FL (7.4-10.4); MONOCYTES # (AUTO) 0.6 X10'3 (0-0.9); MONOCYTES % (AUTO) 2.9 % (2-12); NEUTROPHILS # (AUTO) 18.7 X10'3 (1.8-7.7); NEUTROPHILS % (AUTO) 93.7 % (42-75); PLATELET COUNT 164 X10'3 (140-440)
[2021-09-11 13:29] LABS: PARTIAL THROMBOPLASTIN TIME 26 SECONDS (22-32)
[2021-09-11 13:31] LABS: ANION GAP 12 (8-16); BLOOD UREA NITROGEN 25 MG/DL (7-18); BUN/CREATININE RATIO 14.2 (5.4-32.0); CHLORIDE 102 MMOL/L (99-107); CREATININE 1.76 MG/DL (0.60-1.10); GLUCOSE 205 MG/DL (70-104); POTASSIUM 4.2 MMOL/L (3.5-5.1); SODIUM 137 MMOL/L (135-145); TOTAL CARBON DIOXIDE 22.6 MMOL/L (24-32)
[2021-09-11 13:32] LABS: ALANINE AMINOTRANSFERASE 39 U/L (12-78); ALBUMIN 3.5 G/DL (3.4-5.0); ALBUMIN/GLOBULIN RATIO 1.2 (1.1-1.5); ALKALINE PHOSPHATASE 49 IU/L (46-116); ASPARTATE AMINO TRANSFERASE 59 U/L (10-37); BILIRUBIN,TOTAL 0.7 MG/DL (0.1-1.0); CALCIUM 7.4 MG/DL (8.5-10.1); MAGNESIUM 2.4 MG/DL (1.5-2.4); PHOSPHORUS 4.2 MG/DL (2.3-4.5); TOTAL PROTEIN 6.4 G/DL (6.4-8.2); eGFR 42 ML/MIN
[2021-09-11] MEDS ORDERED: insulin glargine (Lantus) pen - multi-dose SQ SCH (21:00)
[2021-09-12] VITALS (18 sets, daily range): BP systolic 80–151; BP diastolic 53–69
[2021-09-12] MEDS: ceFAZolin/D5W- 1GM premix 50 ML IV SCH (00:02)
[2021-09-12] MEDS: ipratropium/albuterol 3ml nebule NEB SCH ×6 (00:06→19:59)
[2021-09-12 03:10] LABS: BASOPHILS % (AUTO) 0.1 % (0-1); EOSINOPHILS % (AUTO) 0 % (0-6); HEMATOCRIT 31.2 % (42.0-52.0); HEMOGLOBIN 10.7 g/dl (14.0-17.9); LYMPHOCYTES # (AUTO) 0.7 X10'3 (1.1-4.8); LYMPHOCYTES % (AUTO) 4.4 % (21-51); MEAN CORPUSCULAR HGB CONC 34.2 g/dL (33.0-36.5); MEAN CORPUSCULAR VOLUME 90.6 FL (78-98); MEAN PLATELET VOLUME 9.6 FL (7.4-10.4); MONOCYTES % (AUTO) 6.3 % (2-12); NEUTROPHILS # (AUTO) 14.2 X10'3 (1.8-7.7); NEUTROPHILS % (AUTO) 89.2 % (42-75); PLATELET COUNT 138 X10'3 (140-440); RED BLOOD COUNT 3.44 X10'6 (4.70-6.10); RED CELL DISTRIBUTION WIDTH 13.2 % (11.5-14.5); WHITE BLOOD COUNT 15.9 X10'3 (4.5-11.0)
[2021-09-12 03:23] LABS: ANION GAP 9 (8-16); BILIRUBIN,TOTAL 0.6 MG/DL (0.1-1.0); BLOOD UREA NITROGEN 29 MG/DL (7-18); BUN/CREATININE RATIO 19.1 (5.4-32.0); CALCIUM 7.3 MG/DL (8.5-10.1); CHLORIDE 104 MMOL/L (99-107); CREATININE 1.52 MG/DL (0.60-1.10); GLUCOSE 139 MG/DL (70-104); MAGNESIUM 2.5 MG/DL (1.5-2.4); PHOSPHORUS 3.7 MG/DL (2.3-4.5); POTASSIUM 4.2 MMOL/L (3.5-5.1); SODIUM 138 MMOL/L (135-145); TOTAL CARBON DIOXIDE 25.4 MMOL/L (24-32); TOTAL PROTEIN 5.6 G/DL (6.4-8.2); eGFR 49 ML/MIN
[2021-09-12 03:24] LABS: ALANINE AMINOTRANSFERASE 31 U/L (12-78); ALBUMIN 2.9 G/DL (3.4-5.0); ALBUMIN/GLOBULIN RATIO 1.1 (1.1-1.5); ALKALINE PHOSPHATASE 41 IU/L (46-116); ASPARTATE AMINO TRANSFERASE 45 U/L (10-37)
[2021-09-12] MEDS: HYDROcodone/acetaminophen 10/325mg tab PO PRN ×3 (04:57→17:41)
--- NOTE | 2021-09-12 06:30 | NUR ---
Patient in room ICU 2039. I have received report and had the opportunity to ask questions and assume patient care.
[2021-09-12] MEDS: sod chloride 0.9% 10ml flush syringe IV SCH ×2 (08:00→20:41)
[2021-09-12] MEDS: mupirocin 2% nasal ointment 1gm UD NS SCH (08:00)
[2021-09-12] MEDS: sennosides/docusate sodium tablet PO SCH ×2 (08:10→20:41)
[2021-09-12] MEDS: gabapentin 300mg capsule PO SCH (08:11)
[2021-09-12] MEDS: losartan 25mg tablet PO SCH (08:11)
[2021-09-12] MEDS: lactobacillus rhamnosus 10,000 MMU CELLS/CAPSULE PO SCH ×2 (08:11→20:41)
[2021-09-12] MEDS: pantoprazole 40mg Tablet.DR PO SCH (08:11)
[2021-09-12] MEDS: atorvastatin 20mg tablet PO SCH (08:11)
[2021-09-12] MEDS: aspirin 325mg tablet, delayed-release (Ecotrin) PO SCH (08:11)
[2021-09-12] MEDS: docusate sod 100mg capsule PO SCH ×2 (08:12→20:41)
[2021-09-12] MEDS: metoprolol tartrate 12.5mg (1/2 tablet) PO SCH ×2 (08:12→20:41)
[2021-09-12] MEDS ORDERED: potassium Cl 20mEq/100mL bag 100 ML IV PRN (08:20)
[2021-09-12] MEDS ORDERED: potassium Cl 20 mEq SR tablet PO PRN (08:20)
[2021-09-12] MEDS ORDERED: potassium CL 10mEq/100ml bag 100 ML IV PRN (08:20)
[2021-09-12] MEDS ORDERED: potassium Cl 40MEQ/1/2NS 520ml 520 ML IV PRN (08:20)
[2021-09-12] MEDS ORDERED: magnesium 2GM in 50ml NS 50 ML IV PRN (08:20)
[2021-09-12] MEDS ORDERED: potassium Cl 40MEQ/250ML bag 250 ML IV PRN (08:20)
[2021-09-12] MEDS ORDERED: magnesium 4gm in 100ml NS 100 ML IV PRN (08:20)
--- NOTE | 2021-09-12 09:48 | NUR ---
Nutrition consult: CABG consult previously addressed Addendum: 09/12/21 at [address] Amended: Links added.
--- NOTE | 2021-09-12 14:27 | NUR ---
Initial: Pt admitted w/ NSTEMI per EMR, underwent CABG 09/10. Pt currently on Regular/NCS diet eating 100% of meals meeting needs. LBM 09/07 receiving routine Colace and Senna. No nutrition intervention implemented at this time, will continue to monitor. Recs: 1. Continue Regular/NCS diet as tolerated 2. Bowel care per rx 3. Weekly wts Addendum: 09/12/21 at [address] Amended: Links added.
--- NOTE | 2021-09-12 16:00 | NUR ---
Pt reported off to NAOMI Angelo
--- NOTE | 2021-09-12 16:21 | NUR ---
Pt transferred monitored on telemetry to room 0881H
[2021-09-12] MEDS: magnesium Cl slow-release 64mg tablet PO SCH (20:41)
[2021-09-12] MEDS: potassium Cl 20 mEq SR tablet PO SCH (20:42)
[2021-09-12] MEDS: temazepam 15mg capsule PO PRN (20:42)
[2021-09-13] VITALS (8 sets, daily range): BP systolic 95–155; BP diastolic 53–76
[2021-09-13 06:50] LABS: ANION GAP 8 (8-16); BLOOD UREA NITROGEN 36 MG/DL (7-18); BUN/CREATININE RATIO 28.8 (5.4-32.0); CHLORIDE 107 MMOL/L (99-107); CREATININE 1.25 MG/DL (0.60-1.10); GLUCOSE 118 MG/DL (70-104); POTASSIUM 4.3 MMOL/L (3.5-5.1); SODIUM 141 MMOL/L (135-145); TOTAL CARBON DIOXIDE 25.8 MMOL/L (24-32)
[2021-09-13 06:51] LABS: ALBUMIN 2.9 G/DL (3.4-5.0); CALCIUM 7.7 MG/DL (8.5-10.1); eGFR 62 ML/MIN
[2021-09-13 07:12] LABS: BASOPHILS % (AUTO) 0.1 % (0-1); EOSINOPHILS # (AUTO) 0.1 X10'3 (0-0.9); EOSINOPHILS % (AUTO) 1.1 % (0-6); HEMATOCRIT 33.2 % (42.0-52.0); HEMOGLOBIN 11.3 g/dl (14.0-17.9); LYMPHOCYTES # (AUTO) 1.1 X10'3 (1.1-4.8); LYMPHOCYTES % (AUTO) 8.1 % (21-51); MEAN CORPUSCULAR HEMOGLOBIN 31.3 PG (27.0-31.0); MEAN CORPUSCULAR HGB CONC 34.1 g/dL (33.0-36.5); MEAN CORPUSCULAR VOLUME 91.9 FL (78-98); MEAN PLATELET VOLUME 9.8 FL (7.4-10.4); MONOCYTES # (AUTO) 1.5 X10'3 (0-0.9); MONOCYTES % (AUTO) 10.8 % (2-12); NEUTROPHILS # (AUTO) 10.8 X10'3 (1.8-7.7); NEUTROPHILS % (AUTO) 79.9 % (42-75); PLATELET COUNT 136 X10'3 (140-440); RED BLOOD COUNT 3.61 X10'6 (4.70-6.10); RED CELL DISTRIBUTION WIDTH 13.3 % (11.5-14.5); WHITE BLOOD COUNT 13.5 X10'3 (4.5-11.0)
[2021-09-13] MEDS: sod chloride 0.9% 10ml flush syringe IV SCH ×2 (08:00→20:44)
[2021-09-13] MEDS: magnesium Cl slow-release 64mg tablet PO SCH ×2 (08:10→20:43)
[2021-09-13] MEDS: docusate sod 100mg capsule PO SCH ×2 (08:10→20:42)
[2021-09-13] MEDS: atorvastatin 20mg tablet PO SCH (08:11)
[2021-09-13] MEDS: sennosides/docusate sodium tablet PO SCH ×2 (08:11→20:43)
[2021-09-13] MEDS: lactobacillus rhamnosus 10,000 MMU CELLS/CAPSULE PO SCH ×2 (08:11→20:42)
[2021-09-13] MEDS: potassium Cl 20 mEq SR tablet PO SCH ×2 (08:11→20:42)
[2021-09-13] MEDS: pantoprazole 40mg Tablet.DR PO SCH (08:12)
[2021-09-13] MEDS: aspirin 325mg tablet, delayed-release (Ecotrin) PO SCH (08:12)
[2021-09-13] MEDS: HYDROcodone/acetaminophen 10/325mg tab PO PRN ×3 (08:13→20:42)
[2021-09-13] MEDS: metoprolol tartrate 12.5mg (1/2 tablet) PO SCH ×2 (08:45→20:43)
[2021-09-13] MEDS: losartan 25mg tablet PO SCH (08:45)
--- NOTE | 2021-09-13 18:02 | NUR ---
Pt has been able to reposition himself with minimal assistance using sternal precautions throughout shift. Safety measures has been in place all day with call light within reach. Pt ambulated 300 feet with FWW on 4L NC. Pt has been on 2L NC most of the day but was titrated down to RA at shift change.
--- NOTE | 2021-09-13 18:17 | NUR ---
Problems reprioritized. Patient report given, questions answered & plan of care reviewed with Shania RN.
--- NOTE | 2021-09-13 19:00 | NUR ---
pt states he self straight caths; states he empties bladder without difficulty Addendum: 09/14/21 at 0225 by Gina Hughes RN Amended: Links added.
[2021-09-13] MEDS: insulin glargine (Lantus) pen - multi-dose SQ SCH (20:44)
[2021-09-13] MEDS: albuterol 2.5 MG/3 ML nebule NEB PRN (20:49)
[2021-09-14 02:00] VITALS: BP 127/64
[2021-09-14] MEDS: HYDROcodone/acetaminophen 10/325mg tab PO PRN ×2 (03:53→20:56)
[2021-09-14 06:00] VITALS: BP 158/65
--- NOTE | 2021-09-14 06:00 | NUR ---
Patient in room PCU 3019. I have received report from NAOMI Jauregui and had the opportunity to ask questions and assume patient care.
[2021-09-14 06:44] LABS: BASOPHILS % (AUTO) 0.3 % (0-1); EOSINOPHILS # (AUTO) 0.8 X10'3 (0-0.9); EOSINOPHILS % (AUTO) 6.1 % (0-6); HEMATOCRIT 35.6 % (42.0-52.0); LYMPHOCYTES # (AUTO) 1.9 X10'3 (1.1-4.8); LYMPHOCYTES % (AUTO) 13.9 % (21-51); MEAN CORPUSCULAR HGB CONC 33.6 g/dL (33.0-36.5); MEAN CORPUSCULAR VOLUME 92.2 FL (78-98); MONOCYTES # (AUTO) 1.3 X10'3 (0-0.9); MONOCYTES % (AUTO) 9.7 % (2-12); NEUTROPHILS # (AUTO) 9.4 X10'3 (1.8-7.7); PLATELET COUNT 167 X10'3 (140-440); RED BLOOD COUNT 3.86 X10'6 (4.70-6.10); RED CELL DISTRIBUTION WIDTH 13.6 % (11.5-14.5); WHITE BLOOD COUNT 13.4 X10'3 (4.5-11.0)
[2021-09-14 07:19] LABS: ALBUMIN 2.8 G/DL (3.4-5.0); ANION GAP 6 (8-16); BLOOD UREA NITROGEN 27 MG/DL (7-18); BUN/CREATININE RATIO 25.7 (5.4-32.0); CHLORIDE 108 MMOL/L (99-107); CREATININE 1.05 MG/DL (0.60-1.10); GLUCOSE 102 MG/DL (70-104); POTASSIUM 4.1 MMOL/L (3.5-5.1); SODIUM 142 MMOL/L (135-145); TOTAL CARBON DIOXIDE 27.9 MMOL/L (24-32); eGFR 75 ML/MIN
[2021-09-14] MEDS: losartan 25mg tablet PO SCH (07:25)
[2021-09-14] MEDS: sennosides/docusate sodium tablet PO SCH ×2 (07:25→20:55)
[2021-09-14] MEDS: metoprolol tartrate 12.5mg (1/2 tablet) PO SCH ×2 (07:25→20:54)
[2021-09-14] MEDS: magnesium Cl slow-release 64mg tablet PO SCH ×2 (07:25→20:55)
[2021-09-14] MEDS: lactobacillus rhamnosus 10,000 MMU CELLS/CAPSULE PO SCH ×2 (07:25→20:55)
[2021-09-14] MEDS: aspirin 325mg tablet, delayed-release (Ecotrin) PO SCH (07:25)
[2021-09-14] MEDS: atorvastatin 20mg tablet PO SCH (07:26)
[2021-09-14] MEDS: pantoprazole 40mg Tablet.DR PO SCH (07:26)
[2021-09-14] MEDS: potassium Cl 20 mEq SR tablet PO SCH ×2 (07:26→20:48)
[2021-09-14] MEDS: docusate sod 100mg capsule PO SCH ×2 (07:26→20:55)
[2021-09-14] MEDS: sod chloride 0.9% 10ml flush syringe IV SCH ×2 (07:29→20:00)
[2021-09-14] MEDS ORDERED: HYDR-3972 PO (08:19)
[2021-09-14] MEDS ORDERED: LOP12.5T PO (08:19)
[2021-09-14 11:00] VITALS: BP 148/61
[2021-09-14 15:00] VITALS: BP 110/64
[2021-09-14 18:00] VITALS: BP 129/63
--- NOTE | 2021-09-14 18:31 | NUR ---
[place] documentation: I have reviewed and agree with all interventions, assessments performed and documented by NAOMI George.
--- NOTE | 2021-09-14 18:35 | NUR ---
Problems reprioritized. Patient report given, questions answered & plan of care reviewed with NAOMI Wells.
--- NOTE | 2021-09-14 20:45 | NUR ---
Pt in bed AAOX4 , pt requested to be medicated for pain when back to bed. Pt assisted to the bathroom, placed on oxygen and medicated for pain to the surgical site. Respiratory will be paged to place pt on the CPAP
[2021-09-14] MEDS: temazepam 15mg capsule PO PRN (20:55)
[2021-09-14] MEDS: insulin glargine (Lantus) pen - multi-dose SQ SCH (21:00)
[2021-09-15 02:00] VITALS: BP_SYST 108; BP_SYST 91; BP_DIAS 55; BP_DIAS 74
--- NOTE | 2021-09-15 05:38 | NUR ---
Pt in bed on CPAP, reported that he is resting. Denied any discomfort. Mid sternal dressing is clean and intact.
[2021-09-15 06:00] VITALS: BP 112/70
[2021-09-15 07:03] LABS: BASOPHILS % (AUTO) 0.2 % (0-1); EOSINOPHILS # (AUTO) 0.8 X10'3 (0-0.9); EOSINOPHILS % (AUTO) 6.1 % (0-6); HEMATOCRIT 34.8 % (42.0-52.0); HEMOGLOBIN 11.9 g/dl (14.0-17.9); LYMPHOCYTES # (AUTO) 1.7 X10'3 (1.1-4.8); LYMPHOCYTES % (AUTO) 13.2 % (21-51); MEAN PLATELET VOLUME 9.6 FL (7.4-10.4); NEUTROPHILS # (AUTO) 9.4 X10'3 (1.8-7.7); NEUTROPHILS % (AUTO) 72.5 % (42-75); PLATELET COUNT 198 X10'3 (140-440); RED BLOOD COUNT 3.83 X10'6 (4.70-6.10); RED CELL DISTRIBUTION WIDTH 13.5 % (11.5-14.5)
[2021-09-15 07:21] LABS: ALBUMIN 2.7 G/DL (3.4-5.0); ANION GAP 7 (8-16); BLOOD UREA NITROGEN 22 MG/DL (7-18); BUN/CREATININE RATIO 21.6 (5.4-32.0); CALCIUM 8.4 MG/DL (8.5-10.1); CHLORIDE 108 MMOL/L (99-107); CREATININE 1.02 MG/DL (0.60-1.10); GLUCOSE 88 MG/DL (70-104); POTASSIUM 4.6 MMOL/L (3.5-5.1); SODIUM 143 MMOL/L (135-145); TOTAL CARBON DIOXIDE 28.3 MMOL/L (24-32); eGFR 78 ML/MIN
[2021-09-15] MEDS: potassium Cl 20 mEq SR tablet PO SCH (08:00)
[2021-09-15] MEDS: atorvastatin 20mg tablet PO SCH (08:04)
[2021-09-15] MEDS: pantoprazole 40mg Tablet.DR PO SCH (08:04)
[2021-09-15] MEDS: lactobacillus rhamnosus 10,000 MMU CELLS/CAPSULE PO SCH (08:04)
[2021-09-15] MEDS: losartan 25mg tablet PO SCH (08:04)
[2021-09-15] MEDS: aspirin 325mg tablet, delayed-release (Ecotrin) PO SCH (08:05)
[2021-09-15] MEDS: sennosides/docusate sodium tablet PO SCH (08:05)
[2021-09-15] MEDS: magnesium Cl slow-release 64mg tablet PO SCH (08:06)
[2021-09-15] MEDS: metoprolol tartrate 12.5mg (1/2 tablet) PO SCH (08:06)
[2021-09-15] MEDS: docusate sod 100mg capsule PO SCH (08:06)
[2021-09-15] MEDS: sod chloride 0.9% 10ml flush syringe IV SCH (08:07)
[2021-09-15] MEDS: HYDROcodone/acetaminophen 10/325mg tab PO PRN (09:34)
[2021-09-15 11:00] VITALS: BP 106/72
--- NOTE | 2021-09-15 12:07 | NUR ---
Pt stable for D/C Pt stable for D/C per MD orders. All d/c ppwk reviewed with pt and pt family. Dressing change completed and education provided to . Extra dressing supplies sent with pt. MD wants dressing on d/t long kim. Pt verbalized understanding. Tele box #17 removed from pt and given to telehealth coordinator. [facility] [place] 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 Pt was wheeled down by nursing staff to private vehicle where was waiting. No questions, comments or concerns at this time. Pt and pt has verbalized understanding of all d/c instructions.
== END 2021-09-15 12:07 | disposition home or self-care (01) | DRG 233 ==
LOC: PCU 3S 15:36 → UNDOADMIN 15:36 → PCU 3S 16:37 → ICU 2S 09-10 08:43 → PCU 3S 09-12 16:10
PROVIDERS: ADMIT Internal Medicine; ATTEND Family Medicine
PROC: 4A023N8 Measurement of Cardiac Sampling and Pressure, Bilateral, Percutaneous Approach (ICD-10-PCS; principal; 2021-09-09)
PROC: B2111ZZ Fluoroscopy of Multiple Coronary Arteries using Low Osmolar Contrast (ICD-10-PCS; 2021-09-09)
PROC: B2151ZZ Fluoroscopy of Left Heart using Low Osmolar Contrast (ICD-10-PCS; 2021-09-09)
PROC: B3101ZZ Fluoroscopy of Thoracic Aorta using Low Osmolar Contrast (ICD-10-PCS; 2021-09-09)
PROC: 5A09357 Assistance with Respiratory Ventilation, Less than 24 Consecutive Hours, Continuous Positive Airway Pressure (ICD-10-PCS; 2021-09-09)
PROC: 02100Z9 Bypass Coronary Artery, One Artery from Left Internal Mammary, Open Approach (ICD-10-PCS; 2021-09-10)
PROC: 021209W Bypass Coronary Artery, Three Arteries from Aorta with Autologous Venous Tissue, Open Approach (ICD-10-PCS; 2021-09-10)
PROC: 06BQ4ZZ Excision of Left Saphenous Vein, Percutaneous Endoscopic Approach (ICD-10-PCS; 2021-09-10)
PROC: 5A1221Z Performance of Cardiac Output, Continuous (ICD-10-PCS; 2021-09-10)
PROC: B24BZZ4 Ultrasonography of Heart with Aorta, Transesophageal (ICD-10-PCS; 2021-09-10)
PROC: 5A09357 Assistance with Respiratory Ventilation, Less than 24 Consecutive Hours, Continuous Positive Airway Pressure (ICD-10-PCS; 2021-09-10)
PROC: 5A09357 Assistance with Respiratory Ventilation, Less than 24 Consecutive Hours, Continuous Positive Airway Pressure (ICD-10-PCS; 2021-09-11)
PROC: 5A0935A Assistance with Respiratory Ventilation, Less than 24 Consecutive Hours, High Flow/Velocity Cannula (ICD-10-PCS; 2021-09-11)
PROC: 5A09357 Assistance with Respiratory Ventilation, Less than 24 Consecutive Hours, Continuous Positive Airway Pressure (ICD-10-PCS; 2021-09-12)
PROC: 5A0935A Assistance with Respiratory Ventilation, Less than 24 Consecutive Hours, High Flow/Velocity Cannula (ICD-10-PCS; 2021-09-12)
PROC: 5A09457 Assistance with Respiratory Ventilation, 24-96 Consecutive Hours, Continuous Positive Airway Pressure (ICD-10-PCS; 2021-09-13)
DX: T82.855A Stenosis of coronary artery stent, initial encounter (principal); I21.4 Non-ST elevation (NSTEMI) myocardial infarction; U07.1 COVID-19; I50.43 Acute on chronic combined systolic (congestive) and diastolic (congestive) heart failure; N39.0 Urinary tract infection, site not specified; Z68.42 Body mass index [BMI] 45.0-49.9, adult; I13.0 Hypertensive heart and chronic kidney disease with heart failure and stage 1 through stage 4 chronic kidney disease, or unspecified chronic kidney disease; I25.118 Atherosclerotic heart disease of native coronary artery with other forms of angina pectoris; I49.3 Ventricular premature depolarization; R73.03 Prediabetes; D64.89 Other specified anemias; Y83.1 Surgical operation with implant of artificial internal device as the cause of abnormal reaction of the patient, or of later complication, without mention of misadventure at the time of the procedure; N18.9 Chronic kidney disease, unspecified; F17.220 Nicotine dependence, chewing tobacco, uncomplicated; K21.9 Gastro-esophageal reflux disease without esophagitis; E66.01 Morbid (severe) obesity due to excess calories; E78.5 Hyperlipidemia, unspecified; G47.33 Obstructive sleep apnea (adult) (pediatric); I44.0 Atrioventricular block, first degree; I25.2 Old myocardial infarction; Z83.3 Family history of diabetes mellitus; Z80.42 Family history of malignant neoplasm of prostate; Z82.49 Family history of ischemic heart disease and other diseases of the circulatory system; Z79.899 Other long term (current) drug therapy; Z79.82 Long term (current) use of aspirin; Z71.6 Tobacco abuse counseling; Z86.73 Personal history of transient ischemic attack (TIA), and cerebral infarction without residual deficits
CPT/HCPCS: 93306; 93312; 93325; 93461; 93567; Z7506; Z7508; 36415; 36600; 71045; 71046; 76937; 80048; 80053; 80061; 80305; 81001; 82330; 82435; 82550; 82803; 82947; 82948; 83036; 83690; 83735; 83880; 84100; 84132; 84295; 84443; 84484; 85014; 85018; 85025; 85347; 85379; 85384; 85610; 85730; 86885; 86900; 86901; 86920; 87081; 87088; 87635; 93005; 93880; 93970; 94002; 94010; 94640; 94760; 97110; 97116; 97162; 97530; 99152; 99153; A4618; A4620; A5120; A6258; A6449; A7000; A7048; C1751; C1769; C1894; C9113; G0378; J0131; J0171; J0690; J0696; J1265; J1644; J1815; J1940; J2001; J2150; J2250; J2270; J2370; J2440; J2720; J2930; J3010; J3370; J3475; J3480; J3490; J7030; J7040; J7050; J7120; P9045; P9047; Q9967